=== PATIENT | male | born 1965 | race Caucasian/White ===

== ENCOUNTER 2018-04-01 21:52 | Emergency (ER) | payer MEDICARE, MEDICAID ==
[2018-04-01] MEDS ORDERED: HYDROcodone/Acetaminophen 5/325 mg Tablet ONE (22:06)
--- NOTE | 2018-04-02 07:05 | RAD ---
LEFT ANKLE 3 VIEWS: Date: 04/01/18 No fracture was seen. Ankle joint itself appears normal. No acute bony changes were detected. IMPRESSION: No acute bony finding. POS: [facility]
--- NOTE | 2018-04-02 07:06 | RAD ---
LEFT FOOT 3 VIEWS: Date: 04/01/18 No fracture or periosteal reaction seen. All bones appear intact. IMPRESSION: No acute bony findings. POS: [facility]
== END 2018-04-01 22:40 | disposition home or self-care (01) ==
LOC: BURERS 21:52
DX: S93.402A Sprain of unspecified ligament of left ankle, initial encounter (principal); S93.602A Unspecified sprain of left foot, initial encounter; I10 Essential (primary) hypertension; F31.9 Bipolar disorder, unspecified; F20.9 Schizophrenia, unspecified; F17.210 Nicotine dependence, cigarettes, uncomplicated; V04.90XA Pedestrian on foot injured in collision with heavy transport vehicle or bus, unspecified whether traffic or nontraffic accident, initial encounter

== ENCOUNTER 2018-06-19 12:19 | Emergency (ER) | payer MEDICARE, MEDICAID ==
--- NOTE | 2018-06-19 17:33 | RAD ---
LEFT KNEE FOUR VIEWS: 06/19/18 No fracture or joint effusion was seen. All bones appeared intact. The joint space is normal in width . IMPRESSION: No significant findings. POS: [facility]
== END 2018-06-19 13:18 | disposition home or self-care (01) ==
LOC: BURERS 12:19
DX: F31.9 Bipolar disorder, unspecified (principal); M25.562 Pain in left knee; I10 Essential (primary) hypertension; F43.10 Post-traumatic stress disorder, unspecified; F25.9 Schizoaffective disorder, unspecified

== ENCOUNTER 2018-09-28 18:31 | Emergency (ER) | payer MEDICARE, MEDICAID ==
[2018-09-28] MEDS ORDERED: Lidocaine 2% PF 5 ML VIAL ONE (18:46)
[2018-09-28] MEDS ORDERED: Adacel (T-DAP) 0.5 ML SYRINGE ONE (18:48)
== END 2018-09-28 19:28 | disposition home or self-care (01) ==
LOC: BURERS 18:31
DX: S01.21XA Laceration without foreign body of nose, initial encounter (principal); I10 Essential (primary) hypertension; F31.9 Bipolar disorder, unspecified; F43.10 Post-traumatic stress disorder, unspecified; F25.9 Schizoaffective disorder, unspecified; F17.210 Nicotine dependence, cigarettes, uncomplicated; Z79.899 Other long term (current) drug therapy; W26.8XXA Contact with other sharp object(s), not elsewhere classified, initial encounter
CPT/HCPCS: 90715; J2001

== ENCOUNTER → 2018-10-04 | Emergency (ER) | payer MEDICARE, MEDICAID | LOC: BURERS 10:36 | DX: S01.21XD Laceration without foreign body of nose, subsequent encounter (principal) ==

== ENCOUNTER 2019-05-27 19:30 | Emergency (ER) | payer MEDICARE, MEDICAID ==
[2019-05-27] MEDS ORDERED: Clindamycin 150 MG CAP ONE (19:51)
== END 2019-05-27 20:00 | disposition home or self-care (01) ==
LOC: BURERS 19:30
DX: L02.411 Cutaneous abscess of right axilla (principal); I10 Essential (primary) hypertension; F31.9 Bipolar disorder, unspecified; F43.10 Post-traumatic stress disorder, unspecified; F17.210 Nicotine dependence, cigarettes, uncomplicated; Z79.899 Other long term (current) drug therapy
CPT/HCPCS: 10060

== ENCOUNTER 2019-06-12 10:18 | Emergency (ER) | payer MEDICARE, MEDICAID ==
[2019-06-12] MEDS ORDERED: Ibuprofen 200 MG TAB ONE (10:37)
--- NOTE | 2019-06-12 19:16 | RAD ---
LEFT WRIST THREE VIEWS: 06/12/19 An old healed fracture of the fifth metacarpal was noted. The carpal bones themselves all appear inta ct and have normal relationships. IMPRESSION: No acute bony findings. POS: [facility]
== END 2019-06-12 11:01 | disposition home or self-care (01) ==
LOC: BURERS 10:18
DX: S63.502A Unspecified sprain of left wrist, initial encounter (principal); I10 Essential (primary) hypertension; F31.9 Bipolar disorder, unspecified; F25.9 Schizoaffective disorder, unspecified; F43.10 Post-traumatic stress disorder, unspecified; F17.210 Nicotine dependence, cigarettes, uncomplicated; Z79.899 Other long term (current) drug therapy; X50.1XXA Overexertion from prolonged static or awkward postures, initial encounter

== ENCOUNTER 2019-08-29 10:37 | Emergency (ER) | payer MEDICARE, MEDICAID ==
[2019-08-29] MEDS ORDERED: Lidocaine 1% PF 5 ML VIAL ONE (10:56)
== END 2019-08-29 11:03 | disposition home or self-care (01) ==
LOC: BURERS 10:37
DX: L02.01 Cutaneous abscess of face (principal); I10 Essential (primary) hypertension; M19.90 Unspecified osteoarthritis, unspecified site; F31.9 Bipolar disorder, unspecified; F25.9 Schizoaffective disorder, unspecified; F43.10 Post-traumatic stress disorder, unspecified; F17.210 Nicotine dependence, cigarettes, uncomplicated; Z79.899 Other long term (current) drug therapy
CPT/HCPCS: 10061; J2001

== ENCOUNTER 2021-06-17 09:48 | Emergency (ER) | payer MEDICARE, MEDICAID ==
[2021-06-17] MEDS ORDERED: Iopamidol 370 76% 100 ML VIAL FS ONE (09:49)
[2021-06-17] MEDS ORDERED: Ondansetron PF 4 MG/2 ML Vial ONE (10:16)
[2021-06-17 10:28] LABS: Hemoglobin 19.7 g/dL (14.0-18.0); Mean Corpuscular HGB CONC 32.6 g/dL (32.0-36.0); Mean Corpuscular Hemoglobin 33.4 pg (27.0-31.0); Mean Platelet Volume 7.6 fL (7.4-10.4); Platelet Count 330 thou/uL (130-400); RBC Distribution Width 14.5 % (11.5-14.5); Red Blood Cell (RBC) Count 5.89 mill/uL (4.70-6.10); White Blood Cell (WBC) Count 21.2 thou/uL (4.8-10.8)
[2021-06-17] MEDS ORDERED: Promethazine HCl 25 MG/ML VIAL ONE (10:30)
[2021-06-17 10:33] LABS: Acetaminophen Less than 6.0 mcg/mL (10.0-30.0); Alcohol 41 mg/dL (Less than 10); CK (CPK) 118 U/L (30-200); Salicylate Less than 8.0 mg/dL (15.0-30.0)
[2021-06-17 10:36] LABS: ALT (SGPT) 13 U/L (8-55); AST (SGOT) 26 U/L (5-34); Albumin 4.7 g/dL (3.5-5.0); Alkaline Phosphatase 76 U/L (40-110); BUN (Urea Nitrogen) 21 mg/dL (8.4-25.7); Bilirubin, Total 0.5 mg/dL (0.2-1.2); Calc. Creatinine Clearance 0 mL/min (70-130); Calcium 10.3 mg/dL (7.8-10.44); Carbon Dioxide Less than 8 mmol/L (22-29); Chloride 100 mmol/L (98-107); Globulin 3.2 g/dL (2.4-3.5); Glucose 93 mg/dL (70-105); Lipase 26 U/L (8-78); Potassium 4.5 mmol/L (3.5-5.1); Protein, Total 7.9 g/dL (6.0-8.3); Sodium 140 mmol/L (136-145)
[2021-06-17] MEDS ORDERED: cefTRIAXone\\ROCEPHIN 2 GM VIAL ONE (10:47)
[2021-06-17] MEDS ORDERED: Sodium Chloride 0.9% 100 ML ONE (10:47)
[2021-06-17] MEDS ORDERED: Ciprofloxacin Lactate/D5W 400 mg/200 ml Premix ONE (11:02)
[2021-06-17 11:06] LABS: Bilirubin Negative (Negative); Blood, Urine Negative (Negative); Clarity Clear (Clear); Glucose, Urine (Dipstick) Negative (Negative); Ketone, Urine 40 mg/dL (Negative); Leukocyte Negative (Negative); Nitrite Negative (Negative); Protein, Urine (Dipstick) 30 mg/dL (Neg-Trace); Urobilinogen 0.2 mg/dL (Less than 2)
[2021-06-17 11:17] LABS: Amphetamine Not Detected (NotDetected); Barbiturates Screen Not Detected (NotDetected); Benzodiazepine Screen Not Detected (NotDetected); Cocaine Metabolite Screen Not Detected (NotDetected); Medtox Control Line Valid? VALID (VALID); Methadone Not Detected (NotDetected); Methamphetamine Not Detected (NotDetected); Opiate Screen Not Detected (NotDetected); Oxycodone Screen Not Detected (NotDetected); Phencyclidine (PCP) Not Detected (NotDetected); THC/Cannabinoid Screen Detected (NotDetected); Tricyclic Screen Not Detected (NotDetected)
[2021-06-17 11:36] LABS: Bacteria/HPF Rare-Few HPF (None Seen); Epithelial Cast 0-3 LPF (None Seen); RBC/HPF 0-3 HPF (0-3); Squamous Epithelial 0-3 HPF (0-3); WBC/HPF 0-3 HPF (0-3)
[2021-06-17 11:52] LABS: Band 3 % (5-11); Lymphocytes 11 % (21-51); MDiff Complete? YES; Monocytes 5 % (0-10); Neutrophil 81 % (42-75)
[2021-06-17 11:53] LABS: Base Excess-Venous -16.2 mmol/L (-2.0 to 3.0); Calcium, Ionized 1.03 mmol/L (1.15-1.33); Chloride 107 mmol/L (98-107); Hemoglobin - Calc 18.1 g/dL (14.0-18.0); Potassium 4.7 mmol/L (3.5-5.1); Sodium 140 mmol/L (138-145); T. Carbon Dioxide 8.5 mmol/L (22.0-28.0); vO2 Saturation-calc 80.2 % (60.0-85.0)
[2021-06-17] MEDS ORDERED: Sodium Bicarb 50 MEQ/50 ML Abboject 8.4% SYRINGE ONE (12:53)
[2021-06-17 13:58] LABS: Lactic Acid 5.4 mmol/L (0.5-2.2)
== END 2021-06-17 15:06 | disposition short-term general hospital (02) ==
LOC: BURERS 09:48
DX: K52.9 Noninfective gastroenteritis and colitis, unspecified (principal); I10 Essential (primary) hypertension; E87.2 Acidosis; I49.8 Other specified cardiac arrhythmias; F17.210 Nicotine dependence, cigarettes, uncomplicated; R06.82 Tachypnea, not elsewhere classified
CPT/HCPCS: 36415; 71045; 74177; 80053; 80306; 80307; 81003; 81015; 82330; 82550; 82803; 83605; 83690; 83880; 84484; 85025; 87040; 93005; 94760; 96365; 96374; 96375; J0696; J0744; J2405; J2550; J3490; Q9967

== ENCOUNTER 2021-10-24 09:36 | Emergency (ER) | payer MEDICARE, MEDICAID ==
[2021-10-24 10:06] LABS: #Basophils 0.2 thou/uL (0.0-0.2); #Eosinphils 0.1 thou/uL (0.0-0.7); #Lymphocytes 1.8 thou/uL (1.20-3.40); #Monocytes 0.9 thou/uL (0.11-0.59); %Basophils 1.1 % (0.0-1.0); %Eosinophils 0.5 % (0.0-10.0); %Lymphocytes 13.1 % (21.0-51.0); %Monocytes 6.1 % (0.0-10.0); %Neutrophils 79.2 % (42.0-75.0); Hemoglobin 20.3 g/dL (14.0-18.0); Mean Corpuscular HGB CONC 33.3 g/dL (32.0-36.0); Mean Corpuscular Hemoglobin 33.4 pg (27.0-31.0); Mean Platelet Volume 8.2 fL (7.4-10.4); Platelet Count 267 thou/uL (130-400); RBC Distribution Width 13.2 % (11.5-14.5); Red Blood Cell (RBC) Count 6.09 mill/uL (4.70-6.10); White Blood Cell (WBC) Count 13.9 thou/uL (4.8-10.8)
[2021-10-24] MEDS ORDERED: cefTRIAXone\\ROCEPHIN 1 GM VIAL ONE (10:10)
[2021-10-24] MEDS ORDERED: Acetaminophen 500 MG TAB ONE (10:10)
[2021-10-24 10:19] LABS: ALT (SGPT) Less than 7 U/L (8-55); AST (SGOT) 18 U/L (5-34); Albumin 4.8 g/dL (3.5-5.0); Alkaline Phosphatase 81 U/L (40-110); Anion Gap 18 mmol/L (10-20); BUN (Urea Nitrogen) 10 mg/dL (8.4-25.7); Calc. Creatinine Clearance 0 mL/min (70-130); Calcium 10.5 mg/dL (7.8-10.44); Carbon Dioxide 22 mmol/L (22-29); Chloride 104 mmol/L (98-107); Estimated GFR 104; Globulin 3.5 g/dL (2.4-3.5); Glucose 105 mg/dL (70-105); Potassium 4.3 mmol/L (3.5-5.1); Protein, Total 8.3 g/dL (6.0-8.3); Sodium 140 mmol/L (136-145)
[2021-10-24] MEDS ORDERED: cefTRIAXone\\ROCEPHIN 2 GM VIAL ONE (10:26)
[2021-10-24 11:08] LABS: Bilirubin Negative (Negative); Blood, Urine Trace (Negative); Clarity Clear (Clear); Glucose, Urine (Dipstick) Negative (Negative); Ketone, Urine Trace mg/dL (Negative); Leukocyte Negative (Negative); Nitrite Negative (Negative); Protein, Urine (Dipstick) 100 mg/dL (Neg-Trace); Urobilinogen 0.2 mg/dL (Less than 2); pH, Urine 5.5 (5.0-9.0)
[2021-10-24 11:15] LABS: Bacteria/HPF Rare-Few HPF (None Seen); RBC/HPF 0-3 HPF (0-3); Squamous Epithelial 0-3 HPF (0-3); WBC/HPF 0-3 HPF (0-3)
[2021-10-24] MEDS ORDERED: Doxycycline 100 MG CAP ONE (12:23)
[2021-10-24] MEDS ORDERED: methylPREDNISolone Sod Succ/PF 125 MG/2 ML VIAL ONE (12:23)
== END 2021-10-24 12:30 | disposition home or self-care (01) ==
LOC: BURERS 09:36
DX: J44.1 Chronic obstructive pulmonary disease with (acute) exacerbation (principal); I10 Essential (primary) hypertension; F17.210 Nicotine dependence, cigarettes, uncomplicated
CPT/HCPCS: 36415; 71045; 80053; 81003; 81015; 82550; 83605; 83880; 84484; 85025; 87040; 87086; 93005; 96365; 96375; J0696; J2930; J7620

== ENCOUNTER 2023-02-04 10:08 | Emergency (ER) | payer MEDICARE, MEDICAID ==
[2023-02-04] MEDS ORDERED: Lidocaine 2% PF 5 ML VIAL ONE (10:29)
[2023-02-04] MEDS ORDERED: Bacitracin 1 PK ONE (10:59)
== END 2023-02-04 11:22 | disposition home or self-care (01) ==
LOC: BURERS 10:08
DX: S91.115A Laceration without foreign body of left lesser toe(s) without damage to nail, initial encounter (principal); I10 Essential (primary) hypertension; F17.210 Nicotine dependence, cigarettes, uncomplicated; W25.XXXA Contact with sharp glass, initial encounter
CPT/HCPCS: 12002; 90471; J2001

== ENCOUNTER 2023-05-28 19:37 | Emergency (ER) | payer MEDICARE, MEDICAID | END 2023-05-28 20:51 | disposition home or self-care (01) | LOC: BURERS 19:37 | DX: S06.0X0A Concussion without loss of consciousness, initial encounter (principal); S01.01XA Laceration without foreign body of scalp, initial encounter; S01.311A Laceration without foreign body of right ear, initial encounter; I10 Essential (primary) hypertension; F17.210 Nicotine dependence, cigarettes, uncomplicated; W31.83XA Contact with special construction vehicle in stationary use, initial encounter | CPT/HCPCS: 12001; 12011; 70450 ==

== ENCOUNTER 2024-12-26 08:42 | Emergency (ER) | payer MEDICARE ==
[2024-12-26] MEDS ORDERED: Ketorolac Tromethamine 30 MG (1 mL) VIAL ONE (09:11)
[2024-12-26 09:43] LABS: #Basophils 0.1 thou/uL (0.0-0.2); #Eosinophils 0.3 thou/uL (0.0-0.7); #Lymphocytes 2.4 thou/uL (1.20-3.40); #Monocytes 0.8 thou/uL (0.11-0.59); #Neutrophils 7.8 thou/uL (1.40-6.50); %Basophils 1.1 % (0.0-1.0); %Eosinophils 2.9 % (0.0-10.0); %Lymphocytes 20.9 % (21.0-51.0); %Monocytes 6.8 % (0.0-10.0); %Neutrophils 68.3 % (42.0-75.0); ALT (SGPT) 43 U/L (Less than 45); AST (SGOT) 74 U/L (11-34); Albumin 4.5 g/dL (3.1-4.5); Alkaline Phosphatase 68 U/L (40-110); Anion Gap 22 mmol/L (10-20); BUN (Urea Nitrogen) 19 mg/dL (8.4-25.7); Bilirubin, Total 0.7 mg/dL (0.3-1.2); Calc. Creatinine Clearance 0 mL/min (70-130); Calcium 9.1 mg/dL (7.8-10.44); Carbon Dioxide 19 mmol/L (22-29); Chloride 103 mmol/L (98-107); Globulin 3.0 g/dL (2.4-3.5); Glucose 87 mg/dL (70-105); Hematocrit 39.1 % (42.0-52.0); Hemoglobin 14.7 g/dL (14.0-18.0); Mean Corpuscular Hemoglobin 36.5 pg (27.0-31.0); Mean Corpuscular Volume 96.9 fl (78.0-98.0); Platelet Count 95 10x3/uL (130-400); Potassium 3.3 mmol/L (3.5-5.1); Red Blood Cell (RBC) Count 4.03 mill/uL (4.70-6.10); Sodium 141 mmol/L (136-145); White Blood Cell (WBC) Count 11.5 10x3/uL (4.8-10.8)
[2024-12-26 09:46] LABS: Troponin I Less than 0.010 ng/mL (< 0.028)
[2024-12-26 09:49] LABS: Platelet Adequacy Comment Appears Decreased
[2024-12-26 09:50] LABS: MDiff Complete? YES
== END 2024-12-26 10:37 | disposition home or self-care (01) ==
LOC: BURERS 08:42
DX: S80.02XA Contusion of left knee, initial encounter (principal); S20.212A Contusion of left front wall of thorax, initial encounter; E87.6 Hypokalemia; D69.6 Thrombocytopenia, unspecified; F17.210 Nicotine dependence, cigarettes, uncomplicated; J44.9 Chronic obstructive pulmonary disease, unspecified; W29.2XXA Contact with other powered household machinery, initial encounter; Y92.094 Garage of other non-institutional residence as the place of occurrence of the external cause
CPT/HCPCS: 71101; 73564; 80053; 83880; 84484; 85025; 93005; J1885; 96374

== ENCOUNTER 2025-01-11 09:28 | Emergency (ER) | payer MEDICARE ==
[2025-01-11] MEDS ORDERED: Ondansetron PF 4 MG/2 ML Vial ONE (09:51)
[2025-01-11 09:52] LABS: Hematocrit 41.9 % (42.0-52.0); Hemoglobin 15.1 g/dL (14.0-18.0); MDiff Complete? YES; Mean Corpuscular Hemoglobin 35.5 pg (27.0-31.0); Mean Corpuscular Volume 98.7 fl (78.0-98.0); Platelet Count 414 10x3/uL (130-400); Red Blood Cell (RBC) Count 4.24 mill/uL (4.70-6.10); White Blood Cell (WBC) Count 11.0 10x3/uL (4.8-10.8)
[2025-01-11] MEDS ORDERED: Dexamethasone 10 MG/ML VIAL ONE (09:53)
[2025-01-11 09:59] LABS: ALT (SGPT) 20 U/L (Less than 45); AST (SGOT) 28 U/L (11-34); Albumin 4.4 g/dL (3.1-4.5); Alkaline Phosphatase 65 U/L (40-110); Anion Gap 19 mmol/L (10-20); BUN (Urea Nitrogen) 18 mg/dL (8.4-25.7); Bilirubin, Total 0.4 mg/dL (0.3-1.2); Calc. Creatinine Clearance 0 mL/min (70-130); Calcium 10.4 mg/dL (7.8-10.44); Carbon Dioxide 21 mmol/L (22-29); Chloride 107 mmol/L (98-107); Globulin 3.6 g/dL (2.4-3.5); Glucose 98 mg/dL (70-105); Potassium 4.9 mmol/L (3.5-5.1); Sodium 142 mmol/L (136-145)
[2025-01-11 10:09] LABS: Acetaminophen Less than 10 mcg/mL (Less than 10); Magnesium 1.6 mg/dL (1.6-2.6); Salicylate Less than 8.0 mg/dL (Less than 8.0)
[2025-01-11 10:12] LABS: Troponin I Less than 0.010 ng/mL (< 0.028)
[2025-01-11] MEDS ORDERED: Azithromycin 500 MG VIAL ONE (10:21)
[2025-01-11] MEDS ORDERED: cefTRIAXone (ROCEPHIN) 2 GM VIAL ONE (10:22)
[2025-01-11] MEDS ORDERED: Magnesium 2 GM/50 ML BAG (IN WATER) ONE (10:22)
== END 2025-01-11 13:40 | disposition home or self-care (01) ==
LOC: BURERS 09:28
DX: J44.1 Chronic obstructive pulmonary disease with (acute) exacerbation (principal); I10 Essential (primary) hypertension; F17.210 Nicotine dependence, cigarettes, uncomplicated
CPT/HCPCS: 71045; 80053; 80307; 83605; 83735; 83880; 84484; 85025; 87040; 87426; 93005; 94640; 94760; 96365; 96366; 96367; 96375; 99285; J0456; J0696; J1100; J3475; 36415; J2919